=== PATIENT | female | born 2000 | race African-American/Black ===

== ENCOUNTER 2020-05-26 15:29 | Emergency (ER) | payer OTHER ==
--- OUTSIDE RECORDS SUMMARY | 2020-05-26 15:32 | XMS REPORT | Continuity of Care Document ---
:2000 Author Organization [facility] t Address [address] [place] [address] Care Team Providers Name Role Phone EVE Attending Clinician Unavailable DO RIGOBERTO Attending Clinician Unavailable Nancy RUCKER Attending Clinician Unavailable EMMA Attending Clinician Unavailable EVE Admitting Clinician Unavailable DO RIGOBERTO Admitting Clinician Unavailable Nancy RUCKER Admitting Clinician Unavailable EMMA Admitting Clinician Unavailable Problems Condition Condition Condition Status Onset Resolution Last Treating Co mments Source Name Details Category Date Date Treatment Clinician Date Labor pain Labor pain Problem Active 2019-[address] [facility] l (LUF/LI V/SA) Fetus OR Fetus OR Problem Active 2018[facility] affected affected 00:00: Memori a by by 00 l spontaneou spontaneou (L UF/LI s s V/ SA) Pyelonephr Pyelonephr Problem Active [facility] itis itis 7- [facility] - [facility] Memoria 00 l (LUF/LI V/SA) Headache [facility] l (LUF/LI V/SA) Urinary Urinary Problem Active [facility] tract tract 11-25 [facility] - infectious infectious 00:00: Me moria disease disease 00 l (LUF/LI V/SA) Headache Headache Problem [facility]oria 00 l (LUF/LI V/SA) Insect Insect Problem Complet [facility] bite - bite - ed [facility] - wound wound Memoria l (LUF/LI V/SA) Allergies, Adverse Reactions, Alerts This patient has no known allergies or adverse reactions. Social History Smoking Status Start Date Stop Date Source Never [facility] (LUF/[facility]/SA) Medications Ordered Filled Start Stop Current Ordering Indication Dosage Frequency Signature Comments Components Source Medication Medication Date Date Medication? Clinician (SIG) Name Name Medroxyprog Medroxyprog 2019-03 Yes 150mg intramuscu [facility] esterone IM esterone IM 0-13 lar once [facility] - 00:[facility]: [facility]oria 00 l (LUF/LI V/SA) Acetaminoph Acetaminoph 2019-03 Yes 1000 12xD BY MOUTH [facility] en 500 MG en 500 MG 0-12 EVERY 4 Alexa kes - Oral Tablet Oral Tablet 00:00: HOURS Memoria [Tylenol] [Tylenol] 00 NEEDED as l needed. (LUF/LI (ADULT V/SA) MAXIMUM ACETAMINOP HEN DOSE PER 24 HOURS = 4 GRAMS PRN HEADACHE FEVER GREATER THAN 101F MILD PAIN RATED 1-[address] OF NARCOTIC BY REQUEST OF PATIENT DO NOT GIVE WITHIN 4 HOURS OF OTHER MEDS CONTAINING ACETAMINOP HEN) Benzocaine Benzocaine 2019-03 Yes 1 [address] [facility] 200 MG/ML / 200 MG/ML / 0-12 AFFECTED [facility] - Menthol 5 Menthol 5 00:00: AREA PER Memoria MG/ML MG/ML 00 PROTOCOL l Topical Topical as needed. (ALEXA F/LI [place] (RETURN TO /SA) [[facility] [[facility] Pain] Pain] FOR DISPOSAL.) Promethazin Promethazin 2020- No Peggy [address] e HCl e HCl 6 08- [place] as needed [facility] Lamictal Lamictal Yes Peggy [address] [facility] Sprintec 28 Sprintec 28 Yes Peggy [address] [facility] Propranolol Propranolol Yes Peggy [address] [address] HCl HCl [place] [facility] Depo-Agency Recruiter Depo-Agency Recruiter Yes Peggy [address] [facility] Strattera Strattera Yes Peggy [address] [facility] Clonidine Clonidine Yes Peggy [address] HCl HCl [facility] EnLyte EnLyte Yes Peggy as [facility] directed [facility] ent [facility] Protonix Protonix Yes Peggy [address] [facility] Yes Peggy [address] Vitamin Vitamin [facility] DOCUSATE DOCUSATE Yes 100 3xD BY MOUTH [facility] SODIUM SODIUM TWICE A [facility] - DAY (STOOL Memoria SOFTENER) l (LUF/LI V/SA) IBUPROFEN IBUPROFEN Yes [address] [facility] every 8 [facility] - hours as Memoria needed as l needed. (LUF/LI V/SA) Immunizations Ordered Filled Immunization Date Status Comments [facility] e Immunization Name Name Influenza, Influenza, 2020-01-[address] [facility] injectable, injectable, 07:32:00 [facility] quadrivalent, quadrivalent, (LUF/CHERELLE /SA) preservative free preservative free tetanus toxoid, tetanus toxoid, 2019-10-21 Com[facility] - reduced diphtheria reduced diphtheria 00:00:00 [facility] toxoid, and toxoid, and (LUF/CHERELLE/SA) acellular pertussis acellular pertussis vaccine, adsorbed vaccine, adsorbed TDAP > 7 TDAP > 7 2019-10-[address] [facility] - Years-Adacel Years-Adacel 00:00:00 [facility] Outpatient Clinics Influenza, Influenza, 2019-03-[address] [facility] - injectable, injectable, 10:50:00 [facility] quadrivalent, quadrivalent, (LUF/CHERELLE /SA) preservative free preservative free Vital Signs Vital Name Observation Time Observation Value Comments Source Body Temperature 2020-01-03 07:13:00 97.7 [degF] [facility] (LUF/CHERELLE/SA) Pulse Rate 2020-01-03 07:13:00 70 /min [facility] (LUF/CHERELLE/SA) Respiratory Rate 2020-01-03 07:13:00 18 /min [facility] (LUF/CHERELLE/SA) O2% BldC Oximetry 2020-01-03 07:13:00 100 % [facility] (LUF/CHERELLE/SA) BP Systolic 2020-01-03 07:13:00 122 mm[Hg] [facility] (LUF/CHERELLE/SA) BP Diastolic 2020-01-03 07:13:00 66 mm[Hg] [facility] (LUF/CHERELLE/SA) Height 2020-01-02 04:02:00 65 [in_i] [facility] (LUF/CHERELLE/SA) Weight 2020-01-02 04:00:00 66.5 kg [facility] (LUF/CHERELLE/SA) Procedures Procedure Date / Time Performed Performing Clinician Sourc e INTRO INFLUENZA VACCNE 2020-01-02 00:00:00 SHAZIA [place] - MUSCLE PERQ [facility] (LUF/CHERELLE/SA) DELIVERY PRODUCTS OF 2020-01-02 00:00:00 [facility] - CONCEPTION EXT [facility] (LUF/CHERELLE/SA) MAN EXT PROD CONCEPTION 2020-01-02 00:00:00 [facility] RET JOSELITO/A O [facility] (LUF/CHERELLE/SA) Encounters Start End Encounter Admission Attending Care Care Encounter Source Date/Time Date/Time Type Type Clinicians Facility Department ID 2020-01-02 2020-01-03 SMOKING E [place] [id number] [facility] St 04:28:00 17:00:00 TOBACCO JUJU CHIN [facility] carmens [facility] [address] V/SA) [place] [address] 2020-01-02 2020-01-[address] [id number] 2019-10-21 2019-10-21 Outpatient [facility] [id number] 13:08:00 13:08:00 Clinics [facility] 2019-10-21 2019-10-21 Outpatient [facility] [id number] 09:45:00 09:45:00 Clinics Clinics [facility] Health I Health I l Outpati ent Clinics 2019-10-21 2019-10-21 Outpatient [facility] [id number] [facility] 00[facility]00 [facility] Outpati ent Clinics 2019-10-13 2019-10-13 Outpatient [facility] [id number] 15:20:00 15:20:00 Clinics [facility] Health I Health I l Outpati ent Clinics 2019-10-13 2019-10-13 Outpatient [facility] [id number] 14:30:00 14:30:00 Clinics Clinics [facility] Health I Health I l Outpati ent Clinics 2019-09-13 2019-09-13 Outpatient [facility] [id number] 13:30:00 13:30:00 Clinics Clinics [facility] Health I Health I l Outpati ent Clinics 2019-08-17 2019-08-17 Outpatient [facility] [id number] 15:25:00 15:25:00 Clinics Clinics [facility] Health I Health I l Outpati ent Clinics 2019-08-17 2019-08-17 Outpatient [facility] [id number] 14:56:00 14:56:00 Clinics Clinics [facility] Health I Health I l Outpati ent Clinics 2019-08-16 2019-08-16 Outpatient [facility] [id number] 09:35:00 09:35:00 Clinics Clinics [facility] Health I Health I l Outpati ent Clinics 2019-08-16 2019-08-16 Outpatient [facility] [id number] 08:30:00 08:30:00 Clinics Clinics [facility] Health I Health I l Outpati ent Clinics 2019-08-16 2019-08-16 Outpatient [facility] [id number] 08:00:00 08:00:00 Clinics Clinics [facility] Health I Health I l Outpati ent Clinics Results Test Description Test Time Test Comments Results Result Comments Source RUBELLA IMMUNE STATUS 2020-01-04 10:03:00 Test Item Value Reference Range Interpretation Comme nts RUBELLA ANTIBODIES, IGG (test 3.06 index Immune >0.99 N code = 681346) Non-immune <0.90 Equivocal 0.90 - 0.99 Immune >0.99 PERFORMED AT: [facility] [address] [id number] FIBERGLASS CONTAINER WINDING OPERATOR: Walter Watson MD PHONE: [phone] [id number] 16:07:00 [address], [place] [address]Reahj: [phone] UUBT #: [id number] Brim Ironer Hand: Broderick Bell M.D.Surgical Pathology Consultation ReportPatient Name: SERVANDO BACH Case #: [id number] Med. Rec. #: [id number]: [id number] Surgery Date: 01/02/2020 : 2000 (Age:19) Received: 01/03/2020 Gender: F Copy to : Reported:01/03/2020 Physician(s): Juju Brush Specimen(s) ReceivedA: Placenta and cord Final Pathologic DiagnosisPlacenta and cord, products of conception:- MATURE PLACENTA AND CORD. Electronically Signed Out jk/01/03/2020 Broderick eBll MD, Board Certified in Anatomic Pathology Clinical HistoryVaginal delivery at 39 weeks, G2,P0.Gross DescriptionThe specimen is labeled placenta and cord. A 526-gram disc-shapedplacentameasuring 19 x 18 x up to 2.7 cm is received. There is also somedetachedplacental material within the container measuring 5 x 4 x up to 3 cm. Theumbilical cord is centrally located and measures 31 cm in length with adiameter up to 1.5 cm. No knots are identified. Serially sectioningthroughthe cord reveals three vessels. The cord is normallycoiled. The fetalmembranes have a reddish blue appearance. Serially sectioning throughthematernal cotyledons reveals a red spongy cut surface. Section Code: CassetteA1- membranes and portion of umbilical cord; cassetteA2- placenta;cassette A3-placenta and maternal portion of umbilical cord .jk01/03/2020 Broderick Bell MD, Board Certified in Anatomic Pathology Microscopic DescriptionMicroscopic examination of the placenta reveals numerous third trimesterchorionic villi with syncytial knots. There are areas of intervillousfibrindeposition as well as calcifications. No villitis is seen. Theumbilicalcord is composed of two arteries and a vein and there is no inflammationpresent. The membranes are histologically unremarkable and shownoevidence of inflammation.Billing Fee Code(s): A; [id number] (HEMOGRAM ONLY) 2020-01-03 06:05:00 Test Item Value Reference Range Interpretation Comments WBC (test code = 11.78 4.80-10.80 H WBC) 10\\S\\3/ul RBC (test code = 3.53 10\\S\\6/ul 4.20-5.40 L RBC) Hemoglobin (test 9.9 gm/dl 12.0-14.0 L code = HGB) Hematocrit (test 30.7 % 37.0-47.0 L code = HCT) MCV (test code = 87.0 fL 81.0-99.0 MCV) MCH (test code = 28.0 pg 27.0-31.0 MCH) MCHC (test code = 32.2 gm/dl 33.0-37.0 L MCHC) RDW (test code = 14.9 % 11.5-14.5 H RDWVC) Platelet (test code 230 10\\S\\3/ul 130-400 = PLT) MPV (test code = 11.6 fL 7.4-10.4 A "NOT MEASUR ED" MPV) RESULTS ARE DIS PLAYED WHEN THE INSTRU MENT HAS A SUPPRESSE D OR UNREPORTABLE RE SULT. THIS WILL MOST OFTEN HAPPEN WITH THE MPV WHEN THERE IS A N ABNORMAL PLATEL ET DISTRIBUTION DU E TO A CRITICAL LOW VA LUE OR PLATELET CLUMPI NG. THE RDW MAY BE SUPPRESSED IF T HERE ARE MULTIPLE PE AKS PRESENT ON THE RBC HISTOGRAM. IN THIS CASE, A MANUAL REVIEW OF THE SLIDE WI LL BE PERFORMED, AND RBC MORPHOLOGY WILL BE NOTED ON THE RE PORT. URINALYSIS WITH [id number] 08:36:00 Test Item Value Reference Range Interpretation Comments Color (test code = UCOLR) Yellow Lt. Yellow A Clarity (test code = UCLAR) Clear Glucose (test code = UGLUC) Negative Negative N Bilirubin (test code = UBILI) Negative Negative N Ketones (test code = UKET) Negative Negative N Specific Cornish (test code = 1.020 1.005-1.030 A USPGR) Blood (test code = UBLD) Trace-intact Negative A PH (test code = UPH) 7.0 4.5-8.0 A Protein (test code = UPROT) 100 Negative A Urobilinogen (test code = U 1.0 >0.2 A UROB) Nitrite (test code = UNITR) Negative Negative N Leukocyte Esterase (test code = Trace Negative A ULEUK) WBC (test code = WBCUR) 0-5 0-5 N RBC (test code = RBCUR) 0-5 0-5 N Epithial Cells (test code = U 0-10 0-10 N EPI) Bacteria (test code = UBACT) Trace None Seen,Trace N TYPE & [id number] 06:52:00 Test Item Value Reference Range Interpretation Comments ABO Blood Type (test code = ABO) O Rh (test code = RH) Positive Antibody Screen (test code = ABSCR) Negative Negative N ARMBAND# (test code = ARMBAND) GP 26 342 HEP B SURFACE [id number] 06:47:00 Test Item Value Reference Range Interpretation Comments FT (test code = Negative Negative N HBSAG) (qualifier value) Hep B Surface Ag 0.22 mIU/mL 0.00-1.00 No previous value was (Signal Value) reported. Evelyn hammond of (test code = 0.22 was entere d by HBSAG.SV) [id number] on 02/2020 06:47 HBsAg Sig nal Cutoff Interpre tation Guide: < 1.00 Negative S pecimen is presumed to be negative for HB sAg. >=1.00 and < 5. 00 Reactive Spec imen is reactive for HB sAg. Suggest confirm ation by supplemental testing. > 5.00 Positive Specimen is pos itive for HBsAg. HIV 4th GENERATION, [id number] 06:47:00 Test Item Value Reference Range Interpretation Comments HIV 1, 2 (test code <0.05 0.00-0.89 N INTERPRE TATION OF RESULTS: = HIV) Non-Reactive = < 0.90 s/c Reactive = > 1.00 s/c (Confirmat ory tests suggested) Inte rmediate = > 0.90 s/c and <1.00 s/c (results are ba sed on duplicate testi ng) 1. Result is consi dered as Non-Reactive if both the initial and rep eat testing results are non -reactive. 2. Result is c onsidered as Reactive if one or both the initial and rep eat testing results are alvina ctive. (Con firmatory tests suggested ) SYPHILIS, [id number] 06:46:00 Test Item Value Reference Range Interpretation Comments SYPHILIS QUANTITATIVE 0 0.00-0.89 Sample s with an Index (test code = SYPH) Value < 0 .90 are considered nonr eactive for syphilis T. pallidum antibo dies. Samples with an Index Value > 0.90 an d < 1.10 are considered equivocal. Kun ples with an Index V alue > 1.10 are consid ered reactive for sy philis T. pallidum ant ibodies. CORONAVIRUS 2019 (IN LUFKIN)(3HR)2020-01-02 06:30:00 Test Item Value Reference Range Interpretation Comments FT (test code Negative Negative N The BioGX SARS -CoV-2 = COVID) (qualifier value) Reagents f or BD MAX System, the Bio Fire Covid-19, and t he Cepheid Covid-1 9 is for in vitro us e under FDA Emergency U se Authorization o nly. Inhouse testingCBC WITH AUTO [id number] 05:30:00 Test Item Value Reference Range Interpretation Comments WBC (test code = 12.52 4.80-10.80 H WBC) 10\\S\\3/ul RBC (test code = 4.06 10\\S\\6/ul 4.20-5.40 L RBC) Hemoglobin (test 11.2 gm/dl 12.0-14.0 L code = HGB) Hematocrit (test 34.7 % 37.0-47.0 L code = HCT) MCV (test code = 85.5 fL 81.0-99.0 MCV) MCH (test code = 27.6 pg 27.0-31.0 MCH) MCHC (test code = 32.3 gm/dl 33.0-37.0 L MCHC) RDW (test code = 14.5 % 11.5-14.5 RDWVC) Platelet (test code 281 10\\S\\3/ul 130-400 = PLT) MPV (test code = 11.2 fL 7.4-10.4 A "NOT MEASUR ED" MPV) RESULTS ARE DIS PLAYED WHEN THE INSTRU MENT HAS A SUPPRESSE D OR UNREPORTABLE RE SULT. THIS WILL MOST OFTEN HAPPEN WITH THE MPV WHEN THERE IS A N ABNORMAL PLATEL ET DISTRIBUTION DU E TO A CRITICAL LOW VA LUE OR PLATELET CLUMPI NG. THE RDW MAY BE SUPPRESSED IF T HERE ARE MULTIPLE PE AKS PRESENT ON THE RBC HISTOGRAM. IN THIS CASE, A MANUAL REVIEW OF THE SLIDE WI LL BE PERFORMED, AND RBC MORPHOLOGY WILL BE NOTED ON THE RE PORT. NE% (test code = 58.4 % 42.0-75.0 NE) LY% (test code = 30.0 % 13.0-42.0 LY) MO% (test code = 8.9 % 4.0-14.0 MO) EO% (test code = 2.0 % 1.0-5.0 EO) BA% (test code = 0.2 % 0.0-3.0 BA) IG% (test code = 0.5 % 0.0-0.4 H IG%) DRUG SCREEN [id number] 05:10:00 Test Item Value Reference Range Interpretation Comments Amphetamines (test code POS = AMPHET) BARBITUATES (test code = NEG EMILY) Benzodiazepines (test NEG code = BENZO) Cocaine (test code = NEG HAKAN) Methadone (test code = NEG MTD) Opiates (test code = NEG OPIAT) PHENCYCLIDINE, PCP (test NEG The following table code = PCP) provides an int erpretive guide for the D rugs of Abuse ran on e Siemens Van analyzer listed there in: Amphetamines < 1000 ng/ml = Negati ve Barbituates < 200 ng/ml = Negati ve Benzodiazapines < 200 ngml = Negati ve Cocaine < 300 ng/ml = Negati ve Methadone < 300 ng/ml = Negati ve Opiate < 300 ng/ml = Negati ve PCP < 25 ng/ml = Negati ve THC < 50 ng/ml = Negati ve Results equal t o or greater than e above cut-off values = Presumptive Pos itive. Confirmation of Presumptive Pos itive results are qiana ilable upon request. Cannabinoids, THC (test POS code = THC) STAT LAB , [id number] 09:35:00 Test Item Value Reference Range Interpretation Comments (Urine) (test code = Negative PREGU) ONLY AVAILABLE 8A-12MNHISTOLOGY [id number] 12:40:00 [address], [place] [address]Vfazi: [phone] EGBB #: [id number] Brim Ironer Hand: Broderick Bell M.D.Surgical Pathology Consultation ReportPatient Name: SERVANDO WIN Case #: [id number] [facility]. Rec. #:[id number]: [id number] Surgery Date: 03/06/2019 : 2000 (Age:18) Received: 03/07/2019 Gender: F Copy to : Reported:03/08/2019 Physician(s): Juju Brush Specimen(s) ReceivedA: Products of conception Final Pathologic DiagnosisProducts of conception:- immature chorionic villi and degenerating tissue in abackground of gestational endometrium. Electronically Signed Out /03/08/2019 Broderick Bell MD, Board Certified in Anatomic Pathology Clinical HistorySpontaneous .Gross DescriptionThe specimen is labeled products of conception. An aggregate ofhemorrhagictissue measuring 13 x 8 by up to 4 cm is received. Within this tissuethereis some mistry-pink spongy material measuring 7.8 x 4 by up to 2 cm. Thisappears to possibly be a gestational sac. Serial sectioning reveals acysticspace in the middle. Transport Company Manager sections submitted in cassettes [id number]. /03/07/2019 Broderick Bell MD, Board Certified in Anatomic Pathology Microscopic DescriptionMicroscopic examination of the products of conception reveals someimmaturechorionic villi as well as some degenerating tissue in abackground ofgestational endometrium, peripheral blood and fibrin. There are noabnormaltrophoblastic proliferations seen. Billing Fee Code(s): A; [id number], [id number] 07:09:00Specimen: Urine SpecimensCollected: 03/06/2019 09:05 Status: Final Last Updated: 03/08/2019 07:09 Culture Result (Final) (Final) >100,000 cc/mL Gram Negative Bacilli This organism may be significant in women of childbearing age due tothe occurance of meningitis. Isolate (Final) (Final) Escherichia coli Amikacin <=2 S Ampicillin >=32 R Ampicillin/Sulbac 8 S Cefazolin <=4 S Cefepime <=1 S Cefoxitin <=4 S Ceftazidime <=1 S Ceftriaxone <=1 S Ciprofloxacin <=0.25 S Gentamicin <=1 S Levofloxacin <=0.12 S Meropenem <=0.25 S Nitrofurantoin <=16 S Piperacillin/Tazo <=4 S Tobramycin <=1 S Trimeth/Sulfa >=320 R ESBL Negative -US INTRAVAGINAL [id number] 11:38:19Procedures: US INTRAVAGINAL PELVISExam Date: 03/06/2019 9:05 AMOrdering Physician: JUJU SILVERMANClinical Indication: [id number]: Patient currently Comparison: Pelvic sonogram, 03/05/19LMP: 12/30/18Findings: endovaginal sonographic evaluation of the gynecologic organs withgrayscale and color Doppler sonography.UTERUS: Anteverted. The uterus has a normal sonographic echotexture andmeasures 8.8 x 6.0 x 3.9 cm. Endometrial stripe thickness of 6 mm. Mildheterogeneity is demonstrated within the region of the cervix and may representsmall amount of residual products of conception. No significant free fluid isdemonstrated within the posterior cul-de-sac.RIGHT ADNEXA: Not evaluated.LEFT ADNEXA: Not evaluated.IMPRESSION: The uterine cavity has been evacuated since comparison. Mildheterogeneity is demonstrated within the region of the cervix and may representsmall amount of residual products of conception.This final report was electronically signed by Dr Eva Grimaldo MD03/06/2019 11:32 AMDictated By: EVA MITCHELLDate: 03/06/2019 11:32 URINALYSIS WITH [id number] 09:30:00 Test Item Value Reference Range Interpretation Comments Color (test code = UCOLR) YELLOW Clarity (test code = UCLAR) CLEAR Glucose (test code = UGLUC) NEGATIVE NEGATIVE N Bilirubin (test code = UBILI) NEGATIVE NEGATIVE N Ketones (test code = UKET) NEGATIVE NEGATIVE N Specific Cornish (test code = USPGR) >=1.030 1.005-1.030 A Blood (test code = UBLD) LARGE NEGATIVE A PH (test code = UPH) 6.0 4.5-8.0 A Protein (test code = UPROT) NEGATIVE NEGATIVE N Urobilinogen (test code = U UROB) 0.2 >0.2 N Nitrite (test code = UNITR) POSITIVE NEGATIVE A Leukocyte Esterase (test code = NEGATIVE NEGATIVE N ULEUK) WBC (test code = WBCUR) 0-5 0-5 N RBC (test code = RBCUR) 20-30 0-5 A Epithial Cells (test code = U EPI) TNTC 0-10 A Bacteria (test code = UBACT) 4+ None Seen,Trace A CBC WITH AUTO [id number] 05:30:00 Test Item Value Reference Range Interpretation Comments WBC (test code = 10.81 4.80-10.80 H WBC) 10\\S\\3/ul RBC (test code = 3.61 10\\S\\6/ul 4.20-5.40 L RBC) Hemoglobin (test 10.4 gm/dl 12.0-14.0 L code = HGB) Hematocrit (test 31.0 % 37.0-47.0 L code = HCT) MCV (test code = 85.9 fL 81.0-99.0 MCV) MCH (test code = 28.8 pg 27.0-31.0 MCH) MCHC (test code = 33.5 gm/dl 33.0-37.0 MCHC) RDW (test code = 14.9 % 11.5-14.5 H RDWVC) Platelet (test code 229 10\\S\\3/ul 130-400 = PLT) MPV (test code = 11.2 fL 7.4-10.4 A "NOT MEASUR ED" MPV) RESULTS ARE DIS PLAYED WHEN THE INSTRU MENT HAS A SUPPRESSE D OR UNREPORTABLE RE SULT. THIS WILL MOST OFTEN HAPPEN WITH THE MPV WHEN THERE IS A N ABNORMAL PLATEL ET DISTRIBUTION DU E TO A CRITICAL LOW VA LUE OR PLATELET CLUMPI NG. THE RDW MAY BE SUPPRESSED IF T HERE ARE MULTIPLE PE AKS PRESENT ON THE RBC HISTOGRAM. IN THIS CASE, A MANUAL REVIEW OF THE SLIDE WI LL BE PERFORMED, AND RBC MORPHOLOGY WILL BE NOTED ON THE RE PORT. NE% (test code = 53.4 % 42.0-75.0 NE) LY% (test code = 32.0 % 13.0-42.0 LY) MO% (test code = 8.5 % 4.0-14.0 MO) EO% (test code = 5.3 % 1.0-5.0 H EO) BA% (test code = 0.6 % 0.0-3.0 BA) IG% (test code = 0.2 % 0.0-0.4 IG%) US INTRAVAGINAL [id number] 17:08:57Procedures: US INTRAVAGINAL OBExam Date: 03/05/2019 3:38 PMOrdering Physician: HIMANSHU SOTELOClinical Indication: [id number]: Patient currently [id number]: Vaginal bleedingComparison: None available.LMP: 12/30/18Findings: Transabdominal and endovaginal sonographic evaluation of thegynecologicorgans with grayscale and color Doppler sonography.UTERUS: Anteverted. Single living intrauterine gestation at 8 weeks 5 days bycrown-rump length measurement of 2.1 cm deriving an EDC of 10/10/19. Cardiacactivity is not detectable. No significant free fluid is demonstrated withinthe posterior cul-de-sac.RIGHT ADNEXA: Right ovary 3.1 x 1.8 x 1.6 cm. No significant sonographicabnormalities of the right ovary or right adnexa.LEFT ADNEXA: Left ovary 2.8 x 1.8 x 1.5 cm. No significant sonographicabnormalities of the left lower ovary or left adnexa.IMPRESSION: Single intrauterine gestation at 8 weeks 5 days by crown-rump lengthmeasurement and without detectable cardiac activity. Findings consistent withfirst trimester demise.These findings were verbally reported by Dr Grimaldo to HIMANSHU SOTELO on03/05/2019 5:02 PM. :::This final report was electronically signed by Dr Eva Grimaldo MD03/05/2019 5:02 PMDictated By: EVA MITCHELLDate: 03/05/2019 17:02BETA HCG [id number] 16:39:00 Test Item Value Reference Range Interpretation Comments BHCG II (test 1662.00 IU/L 0.00-4.80 H A NEW EXPANDED METHOD FOR code = BHCGII) BHCG WILL BE INTRODUCED ON OCTOBER 30. THE DYNAMIC RANGE O F THE TEST HAS BEEN INCREA SED ALLOWING FOR FE WER DILUTUIONS, AND THE GESTATION WEEKS HAVE BEEN AGGREGATED TO A LLOW FOR EASE OF INTREPR ETATION. PLEASE REFER TO THE INTERPRETATION TABLE BELOW. Beta hC G levels in non- individuals = < 4.83 IU/L GESTAT IONAL AGE: 1-10 weeks 63.70 - 338334.00 IU/ L 11-15 weeks 46150. 00 - 436230.00 IU/L 16-22 weeks 9383. 80 - 31600.00 IU/L 23-40 weeks 1737. 20 - 55516.00 IU/L Detection of very Low Lev els of hCG does not exclud e . Repe at testing after 48 Hrs. i s recommended. TH IS ASSAY SHOULD NOT BE U SED TO DIAGNOSE ANY CO NDITION UNRELATED TO KS EGNANCY. URINALYSIS WITH [id number] 16:31:00 Test Item Value Reference Range Interpretation Comments Color (test code = UCOLR) RED Clarity (test code = UCLAR) CLOUDY Glucose (test code = UGLUC) NEGATIVE NEGATIVE N Bilirubin (test code = UBILI) NEGATIVE NEGATIVE N Ketones (test code = UKET) TRACE NEGATIVE A Specific Cornish (test code = USPGR) >=1.030 1.005-1.030 A Blood (test code = UBLD) LARGE NEGATIVE A PH (test code = UPH) 5.5 4.5-8.0 A Protein (test code = UPROT) 100 NEGATIVE A Urobilinogen (test code = U UROB) 1.0 >0.2 A Nitrite (test code = UNITR) POSITIVE NEGATIVE A Leukocyte Esterase (test code = TRACE NEGATIVE A ULEUK) WBC (test code = WBCUR) 0-10 0-5 A RBC (test code = RBCUR) TNTC 0-5 A Epithial Cells (test code = U EPI) TNTC 0-10 A Bacteria (test code = UBACT) Trace None Seen,Trace N PT AND [id number] 16:24:00 Test Item Value Reference Range Interpretation Comments Protime (test code 10.6 seconds 9.5-12.1 = PT) INR (test code = 1.0 0.9-1.1 INR results are INR) intended ONLY t o monitor Oral Anticoagulant t herapy in stablized pa tients. The INR Therape utic Range is 2.0 - 3.0 Patients with a mechanical hear t, the INR Range is 2. 5 - 3.5 STAT LAB [id number] [id number] 16:13:00 Test Item Value Reference Range Interpretation Comments Sodium (test code = NA) 137 mmol/l 138-146 L Potassium (test code = K) 4.0 mmol/l 3.5-4.9 Chloride (test code = CL) 104 mmol/l 98-109 IONIZED CALCIUM (test code = ICA) 1.14 1.12-1.32 A CO2 (test code = CO2) 24 mmol/l 24-29 Glucose (test code = GLU) 102 mg/dl 70-105 BUN (test code = BUN) 7 mg/dl 6-17 Creatinine (test code = CREA) 0.6 mg/dl 0.6-1.3 [id number] 16:13:00 Test Item Value Reference Range Interpretation Comments Rh (test code = RH) Positive Positive,Negative N Weak D (Du) (test code = DU) N/A STAT LAB CBC WITH AUTO [id number] 16:10:00 Test Item Value Reference Range Interpretation Comments WBC (test code = WBC) 8.47 10\\S\\3/ul 4.80-10.80 RBC (test code = RBC) 4.14 10\\S\\6/ul 4.20-5.40 L Hemoglobin (test code = HGB) 11.9 gm/dl 12.0-14.0 L Hematocrit (test code = HCT) 36.3 % 37.0-47.0 L MCV (test code = MCV) 87.7 fL 81.0-99.0 MCH (test code = MCH) 28.7 pg 27.0-31.0 MCHC (test code = MCHC) 32.8 gm/dl 33.0-37.0 L Platelet (test code = PLT) 269 10\\S\\3/ul 130-400 RDW (test code = RDWVC) 15.6 % 11.5-14.5 H MPV (test code = MPV) 10.9 fL 7.4-10.4 A NE% (test code = NE) 44.3 % 42.0-75.0 LY% (test code = LY) 39.0 % 13.0-42.0 MO% (test code = MO) 7.3 % 4.0-14.0 EO% (test code = EO) 8.7 % 1.0-3.0 H BA% (test code = BA) 0.5 % 1.0-3.0 L IG% (test code = IG%) 0.2 % 0.0-0.4 CULTURE, [id number] 06:21:00FIRST DRAW = 1 aerobic and 1 anerobic Culture Specimen: BloodCollected: 10/11/2018 15:20 Status: Final Last Updated: 10/17/2018 06:21 (1) FIRST DRAW = 1 aerobic and 1 anerobic Culture Culture Result (Final) (Final) No Growth After 5 DaysCULTURE, ANAEROBE BLOOD 2018-10-17 06:21:00FIRST DRAW = 1 aerobic and 1 anerobic CultureSpecimen: BloodCollected: 10/11/2018 15:20 Status: Final Last Updated: 10/17/2018 06:21 (1) FIRST DRAW = 1 aerobic and 1 anerobic Culture Culture Result (Final) (Final) No Growth After 5 DaysSTAT LAB , [id number] 15:41:00 Test Item Value Reference Range Interpretation Comments (Urine) (test code = Negative PREGU) ONLY AVAILABLE 8A-12MNSTAT LAB URINALYSIS WITHOUT [id number] 15:39:00 Test Item Value Reference Range Interpretation Comments Color (test code = UCOLR) Yellow Lt. Yellow A Clarity (test code = UCLAR) Clear Glucose (test code = UGLUC) Negative Negative N Bilirubin (test code = UBILI) Negative Negative N Ketones (test code = UKET) 15 Negative A Specific Cornish (test code = USPGR) 1.020 1.005-1.030 A Blood (test code = UBLD) Moderate Negative A PH (test code = UPH) 5.5 4.5-8.0 A Protein (test code = UPROT) 100 Negative A Urobilinogen (test code = U UROB) 4.0 >0.2 A Nitrite (test code = UNITR) Positive Negative A Leukocyte Esterase (test code = Small Negative A ULEUK) STAT LAB CBC WITH AUTO [id number] 15:38:00 Test Item Value Reference Range Interpretation Comments WBC (test code = WBC) 14.48 10\\S\\3/ul 4.80-10.80 H RBC (test code = RBC) 4.79 10\\S\\6/ul 4.20-5.40 Hemoglobin (test code = HGB) 13.3 gm/dl 12.0-14.0 Hematocrit (test code = HCT) 41.8 % 37.0-47.0 MCV (test code = MCV) 87.3 fL 81.0-99.0 MCH (test code = MCH) 27.8 pg 27.0-31.0 MCHC (test code = MCHC) 31.8 gm/dl 33.0-37.0 L Platelet (test code = PLT) 220 10\\S\\3/ul 130-400 RDW (test code = RDWVC) 14.0 % 11.5-14.5 MPV (test code = MPV) 10.9 fL 7.4-10.4 A NE% (test code = NE) 79.1 % 42.0-75.0 H LY% (test code = LY) 9.0 % 13.0-42.0 L MO% (test code = MO) 10.7 % 4.0-14.0 EO% (test code = EO) 0.7 % 1.0-3.0 L BA% (test code = BA) 0.2 % 1.0-3.0 L IG% (test code = IG%) 0.3 % 0.0-0.4 STAT LAB LACTIC [id number] 15:38:00 Test Item Value Reference Range Interpretation Comments LACTATE (test code = LAC) 1.83 mmol/l 0.90-1.70 H URINALYSIS WITH [id number] 13:30:00 Test Item Value Reference Range Interpretation Comments Color (test code = UCOLR) YELLOW Clarity (test code = UCLAR) SL CLOUDY Glucose (test code = UGLUC) NEGATIVE NEGATIVE N Bilirubin (test code = UBILI) NEGATIVE NEGATIVE N Ketones (test code = UKET) NEGATIVE NEGATIVE N Specific Cornish (test code = 1.015 1.005-1.030 A USPGR) Blood (test code = UBLD) MODERATE NEGATIVE A PH (test code = UPH) 6.0 4.5-8.0 A Protein (test code = UPROT) 100 NEGATIVE A Urobilinogen (test code = U UROB) 0.2 >0.2 N Nitrite (test code = UNITR) POSITIVE NEGATIVE A Leukocyte Esterase (test code = SMALL NEGATIVE A ULEUK) WBC (test code = WBCUR) 20-30 0-5 A RBC (test code = RBCUR) 5-10 0-5 A Epithial Cells (test code = U EPI) 40-50 0-10 A Mucous (test code = UMUC) Moderate None Seen A Bacteria (test code = UBACT) 4+ None Seen,Trace A Crystals Urine (test code = URCRYS) None Seen None Seen N Urine Casts (test code = UR CAST) None Seen None Seen N TEST, Urine [id number] 12:51:00 Test Item Value Reference Range Interpretation Comments (Urine) (test code = Negative PREGU) If a specimen is collected by a nurse, then you MUST fill out the Collected and Collected By beatty CULTURE, [id number] 07:34:00er 6 Specimen: Urine SpecimensCollected: 11/01/2016 09:55 Status: Final Last Updated: 11/03/2016 07:33 (1) er 6 Culture Result (Final) (Final) >100,000 cc/mL Gram Negative Bacilli Isolate (Final) (Final) Escherichia coli Amoxicillin/clavu 4 S Ampicillin >=32 R Cefazolin <=4 S Cefepime <=1 S Ceftriaxone <=1 S Gentamicin <=1 S Imipenem <=0.25 S Meropenem <=0.25 S Nitrofurantoin <=16 S Trimeth/Sulfa <=20 S ESBL Negative -URINALYSIS WITH [id number] 09:46:00 Test Item Value Reference Range Interpretation Comments Color (test code = UCOLR) YELLOW Clarity (test code = UCLAR) CLOUDY Glucose (test code = UGLUC) NEGATIVE NEGATIVE N Bilirubin (test code = UBILI) NEGATIVE NEGATIVE N Ketones (test code = UKET) NEGATIVE NEGATIVE N Specific Cornish (test code = USPGR) 1.025 1.005-1.030 A Blood (test code = UBLD) LARGE NEGATIVE A PH (test code = UPH) 6.0 4.5-8.0 A Protein (test code = UPROT) 100 NEGATIVE A Urobilinogen (test code = U UROB) 1.0 >0.2 A Nitrite (test code = UNITR) POSITIVE NEGATIVE A Leukocyte Esterase (test code = MODERATE NEGATIVE A ULEUK) WBC (test code = WBCUR) 60-75 0-5 A RBC (test code = RBCUR) 30-40 0-5 A Epithial Cells (test code = U EPI) 0-10 0-10 N Bacteria (test code = UBACT) 1+ None Seen,Trace A [id number] 09:41:00 Test Item Value Reference Range Interpretation Comments Glucose (test code 104 mg/dl 75-110 = GLU) BUN (test code = 9.0 mg/dl 6.0-17.0 BUN) Creatinine (test 0.8 mg/dl 0.4-1.2 code = CREA) Sodium (test code = 146 mmol/l 137-145 H NA) Potassium (test 3.6 mmol/l 3.5-5.0 code = K) Chloride (test code 109 mmol/l 98-107 H = CL) CO2 (test code = 24 mmol/l 22-30 CO2) Calcium (test code 9.7 mg/dl 8.4-10.2 = CALC) T Protein (test 7.9 gm/dl 5.1-8.7 code = TP) Albumin (test code 4.4 gm/dl 3.5-4.6 = ALB) A/G Ratio (test 1.3 % 1.1-2.2 code = AGRAT) AST (SGOT) (test 29 U/L 11-36 code = AST) ALT (SGPT) (test 30 U/L 11-40 code = ALT) Alkaline Phos (test 89 U/L 47-114 code = ALKP) Total Bilirubin 1.0 mg/dl 0.2-1.2 (test code = TBIL) Globulin (test code 3.5 gm/dl 2.3-3.5 = GLOBU) Calcium, Corrected 9.4 mg/dl 8.4-10.2 Various f ormulas exist (test code = for corrected s alka CALCCORR) calcium results , each yielding differ ent values. This corrected resul t was based on the fo rmula: Corrected Calci um = SerumCalcium + [0.8 * ( 4 - SerumAlbu min)] EGFR if n/a Russian (test code mL/min/1.73m\\ = EGFRAA) S\\2 EGFR if Non- n/a Estimate d Glomerular Russian (test code mL/min/1.73m\\ Filtrat ion Rate (eGFR) = EGFRNA) S\\2 Reference Inter vals Decision Points for 18 years and older and average body ma ss: >= 60 Does not exc lude kidney disease. 30 - 59 Suggests modera te chronic kidney disease and indicat es the need for furthe r investigation including asses sment of proteinuria and cardiovascular factors. < 30 Usually in dicates a need for refe rral for assessment and management of c hronic kidney failure. TEST, Urine [id number] 09:17:00 Test Item Value Reference Range Interpretation Comments (Urine) (test code = Negative PREGU) If a specimen is collected by a nurse, then you MUST fill out the Collected and Collected By beatty CBC WITH AUTO [id number] 09:17:00 Test Item Value Reference Range Interpretation Comments WBC (test code = WBC) 6.55 10\\S\\3/ul 4.80-10.80 RBC (test code = RBC) 4.63 10\\S\\6/ul 4.20-5.40 Hemoglobin (test code = HGB) 13.0 gm/dl 12.0-14.0 Hematocrit (test code = HCT) 40.2 % 37.0-47.0 MCV (test code = MCV) 86.8 fL 81.0-99.0 MCH (test code = MCH) 28.1 pg 27.0-31.0 MCHC (test code = MCHC) 32.3 gm/dl 33.0-37.0 L RDW-SD (test code = RDW-SD) 46.3 fL 36.4-46.3 Platelet (test code = PLT) 191 10\\S\\3/ul 130-400 MPV (test code = MPV) 11.6 fL 7.4-10.4 A NE% (test code = NE) 60.5 % 42.0-75.0 LY% (test code = LY) 26.3 % 13.0-42.0 MO% (test code = MO) 9.6 % 4.0-14.0 EO% (test code = EO) 2.7 % 1.0-3.0 BA% (test code = BA) 0.6 % 1.0-3.0 L IG% (test code = IG%) 0.3 % 0.0-0.4
[2020-05-26 17:31] LABS: BUN Blood Urea Nitrogen 9 mg/dL (7-18); Bicarbonate 29 mmol/L (21-32); Glucose Level 82 mg/dL (74-106); Potassium 4.1 mmol/L (3.5-5.1); Sodium Level 143 mmol/L (136-145)
[2020-05-26 17:34] LABS: Absolute Lymphocytes (CBC) 2.5 K/uL (0.7-4.9); Hematocrit 35.9 % (36.0-45.0); Lymphocytes % 52.6 % (15.3-44.8); MPV 9.8 fL (7.6-11.3); RBC Red Blood Cell Count 4.22 M/uL (3.86-4.86)
--- NOTE | 2020-05-26 17:45 | ER ---
Nurse's Notes [facility] Name: Harika Mccauley Age: 19 yrs Sex: Female : 2000 Arrival Date: 05/26/2020 Time: 15:53 Bed 17 Private MD: Diagnosis: Abnormal uterine and vaginal bleeding, unspecified Presentation: 05/26 15:54 Chief complaint: Patient states: 5 months post , last period was may 01 and bled iw for ten days, went to rehab abd had an odor, was diagnosed with yeast infection and BV, then started having heavy bleeding today and abd pain. Coronavirus screen: At this time, the client does not indicate any symptoms associated with coronavirus-19. Ebola Screen: Patient negative for fever greater than or equal to 101.5 degrees Fahrenheit, and additional compatible Ebola Virus Disease symptoms Patient denies exposure to infectious person. Patient denies travel to an Ebola-affected area in the 21 days before illness onset. No symptoms or risks identified at this time. Initial Sepsis Screen: Does the patient meet any 2 criteria? No. Patient's initial sepsis screen is negative. Does the patient have a suspected source of infection? No. Patient's initial sepsis screen is negative. Risk Assessment: Do you want to hurt yourself or someone else? Patient reports no desire to harm self or others. Onset of symptoms was May 26, 2020. 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 - Social history:: Smoking status: Patient reports the use of cigarette tobacco products, smokes one pack cigarettes per day. 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 Screenin:03 Abuse screen: Denies threats or abuse. Nutritional screening: No deficits noted. rb3 Tuberculosis screening: No symptoms or risk factors identified. Fall Risk None identified. Assessment: 16:03 General: Appears in no apparent distress. Behavior is calm, cooperative, Denies fever. rb3 Pain: Complains of pain in left lower quadrant Pain currently is 7 out of 10 on a pain scale. Neuro: Level of Consciousness is awake, alert, obeys commands, Oriented to person, place, time, situation. Cardiovascular: Patient's skin is warm and dry. Respiratory: Airway is patent Respiratory effort is even, unlabored, Respiratory pattern is regular, symmetrical. GI: Reports nausea. : Reports vaginal bleeding that is bright red, moderate flow. 17:00 Reassessment: Patient appears in no apparent distress at this time. No changes from rb3 previously documented assessment. 17:55 Reassessment: Patient appears in no apparent distress at this time. Patient and/or rb3 family updated on plan of care and expected duration. Pain level reassessed. Patient is alert, oriented x 3, equal unlabored respirations, skin warm/dry/pink. Vital Signs: 15:54 BP 110 / 87; Pulse 81; Resp 16; Temp 98.6; Pulse Ox 100% on R/A; Weight 54.43 kg; iw Height 5 ft. 2 in. (157.48 cm); Pain 7/10; 17:05 BP 109 / 88; Pulse 78; Resp 16; Pulse Ox 99% ; rb3 15:54 Body Mass Index 21.95 (54.43 kg, 157.48 cm) iw ED Course: 15:53 Patient arrived in ED. iw 15:57 Triage completed. iw 15:58 Arm band placed on. iw 16:00 Roseanna Garza FNP-C is [facility]. kb 16:00 Jasiel Gottlieb MD is Attending Physician. kb 16:03 Patient has correct armband on for positive identification. Bed in low position. Call rb3 light in reach. Side rails up X 1. Pulse ox on. NIBP on. 16:07 Radha Soto, VISHAL is Primary Nurse. rb3 17:00 Inserted saline lock: 20 gauge in right antecubital area, using aseptic technique. rb3 Blood collected. 18:02 Assist provider with bone marrow aspiration. IV discontinued, intact, bleeding zb controlled, No redness/swelling at site. Pressure dressing applied. Administered Medications: No medications were administered Outcome: 17:44 Discharge ordered by . kb 18:02 Discharged to home ambulatory. zb 18:02 Condition: stable 18:02 Discharge instructions given to patient, Instructed on discharge instructions, follow up and referral plans. Demonstrated understanding of instructions, follow-up care. 18:03 Patient left the ED. zb Signatures: Roseanna Garza, FINANCE EFFECTIVENESS MANAGER-C FINANCE EFFECTIVENESS MANAGER-CkMonica Reagan, RN RN Yaneth Wang RN RN Radha Sánchez, RN RN rb3 Corrections: (The following items were deleted from the chart) 15:57 15:54 Chief complaint: Patient states: 5 months post , last period was may 01 and iw bled for ten days, went to rehab abd had an odor, was diagnosed with yeast infection and BV, then started having heavy bleeding iw 15:57 15:54 Pulse 81bpm; Resp 16bpm; Pulse Ox 100% RA; Temp 98.6F; 54.43 kg; Height 5 ft. 2 iw in.; BMI: 21.9; Pain 7/10; iw
--- NOTE | 2020-05-26 17:45 | EDPHYS ---
Physician Documentation [facility] Name: Harika Mccauley Age: 19 yrs Sex: Female : 2000 Arrival Date: 05/26/2020 Time: 15:53 Bed 17 Private MD: ED Physician Jasiel Gottlieb HPI: 05/26 18:00 This 19 yrs old Black Female presents to ER via Ambulatory with complaints of Vaginal kb Bleeding. 18:00 The patient presents with vaginal bleeding that is moderate. Onset: The kb symptoms/episode began/occurred 1 month(s) ago. Modifying factors: The symptoms are alleviated by nothing, the symptoms are aggravated by nothing. Associated signs and symptoms: Pertinent positives: cramping, vaginal bleeding. Severity of symptoms: At their worst the symptoms were moderate, in the emergency department the symptoms are unchanged. The patient is sexually active, does not use protection during intercourse. The patient has not experienced similar symptoms in the past. The patient has not recently seen a physician. Pt reports intermittent vaginal bleeding with cramping for a month. Started bleeding again this morning. . 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 - Social history:: Smoking status: Patient reports the use of cigarette tobacco products, smokes one pack cigarettes per day. 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 ROS: 18:00 Constitutional: Negative for fever, chills, and weight loss, Cardiovascular: Negative kb for chest pain, palpitations, and edema, Respiratory: Negative for shortness of breath, cough, wheezing, and pleuritic chest pain, Abdomen/GI: Negative for abdominal pain, nausea, vomiting, diarrhea, and constipation, MS/Extremity: Negative for injury and deformity, Skin: Negative for injury, rash, and discoloration, Neuro: Negative for headache, weakness, numbness, tingling, and seizure. 18:00 : Positive for vaginal bleeding. Exam: 18:00 Constitutional: This is a well developed, well nourished patient who is awake, alert, kb and in no acute distress. Head/Face: Normocephalic, atraumatic. Skin: Warm, dry with normal turgor. Normal color with no rashes, no lesions, and no evidence of cellulitis. MS/ Extremity: Pulses equal, no cyanosis. Neurovascular intact. Full, normal range of motion. Neuro: Awake and alert, GCS 15, oriented to person, place, time, and situation. Cranial nerves II-XII grossly intact. Moves all extremities. Sensory grossly intact. Cerebellar exam normal. Normal gait. 18:00 Respiratory: the patient does not display signs of respiratory distress, Respirations: normal. Vital Signs: 15:54 BP 110 / 87; Pulse 81; Resp 16; Temp 98.6; Pulse Ox 100% on R/A; Weight 54.43 kg; iw Height 5 ft. 2 in. (157.48 cm); Pain 7/10; 17:05 BP 109 / 88; Pulse 78; Resp 16; Pulse Ox 99% ; rb3 15:54 Body Mass Index 21.95 (54.43 kg, 157.48 cm) iw MDM: 16:00 Patient medically screened. kb 18:05 Data reviewed: vital signs, nurses notes. Data interpreted: Pulse oximetry: on room air kb is 100 %. Interpretation: normal. Counseling: I had a detailed discussion with the patient and/or guardian regarding: the historical points, exam findings, and any diagnostic results supporting the discharge/admit diagnosis, lab results, radiology results, the need for outpatient follow up, an OB/Gyne specialist, to return to the emergency department if symptoms worsen or persist or if there are any questions or concerns that arise at home. 05/26 16:19 Order name: CBC with Diff; Complete Time: 17:37 kb 05/26 16:19 Order name: Basic Metabolic Panel; Complete Time: 17:37 kb 05/26 16:19 Order name: IV Start kb 05/26 16:19 Order name: US Transvaginal Study (Probe) kb 05/26 18:00 Order name: Urine Dipstick--Ancillary (enter results) eb 05/26 18:00 Order name: Urine --Ancillary (enter results) eb 05/26 16:19 Order name: Urine Dipstick-Ancillary (obtain specimen) kb 05/26 16:19 Order name: Urine Test (obtain specimen) elysia Administered Medications: No medications were administered Disposition: 05/27 09:04 Co-signature as Attending Physician, Jasiel Gottlieb MD I agree with the assessment and zena plan of care. Disposition: 05/26/20 17:44 Discharged to Home. Impression: Abnormal uterine and vaginal bleeding, unspecified. - Condition is Stable. - Discharge Instructions: Uterine Fibroids, [id number], Abnormal Uterine Bleeding, [id number]. - Medication Reconciliation Form, Thank You Letter, Antibiotic Education, Prescription Opioid Use, Work release form form. - Follow up: Private Physician; When: 2 - 3 days; Reason: Recheck today's complaints, Continuance of care, Re-evaluation by your physician. Follow up: Emergency Department; When: As needed; Reason: Worsening of condition. Signatures: Dispatcher [employer] EDMS Roseanna Garza, DISTRICT OR DISTRICT OFFICE DIRECTOR-C PAULINA-Jasiel Ruvalcaba MD MD cha Williams, Irene, RN RN iw Brown, Zipporah, RN RN zremington Corrections: (The following items were deleted from the chart) 05/26 18:03 17:44 05/26/2020 17:44 Discharged to Home. Impression: Abnormal uterine and vaginal zb bleeding, unspecified. Condition is Stable. Forms are Medication Reconciliation Form, Thank You Letter, Antibiotic Education, Prescription Opioid Use. Follow up: Private Physician; When: 2 - 3 days; Reason: Recheck today's complaints, Continuance of care, Re-evaluation by your physician. Follow up: Emergency Department; When: As needed; Reason: Worsening of condition. kb
--- NOTE | 2020-05-26 18:09 | RAD REPORT ---
EXAM DESCRIPTION: US - Transvaginal Study Probe - 05/26/2020 5:50 pm CLINICAL HISTORY: Abd pain;Vaginal bleeding COMPARISON: <Comparisons> TECHNIQUE: Endovaginal sonography was performed. FINDINGS: Uterus is normal in size. Endometrial stripe is 6 mm with no focal endometrial abnormality . In the posterior fundus there is a 19 millimeter hyperechoic focus most likely an intramural fibroi d. This does not displace or distort the endometrial cavity or distort the uterine capsule. No blood or fluid in the cul de sac. Both ovaries are identified. Doppler evaluation shows normal blood flow in the ovarian stroma. A 14 m illimeter anechoic right ovarian cyst is present. No cyst rupture or hemorrhage findings. No solid ma ss of the adnexa. IMPRESSION: Approximately 14 millimeter right ovarian cyst without rupture or hemorrhage findings. N o suspicious adnexal finding. Approximately 19 millimeter echogenic mass of the posterior uterine fundus is most likely an intramur al fibroid. This can be monitored on a follow-up examination in 6 months. No suspicious or emergent ovarian or adnexal finding.
[2020-05-26 18:17] VITALS: BP 110/87; TEMP 98.6; O2SAT 100
[2020-05-26 20:04] LABS: Urine Blood 2+ (NEG); Urine Glucose NEGATIVE (NEG); Urine Protein NEGATIVE (NEG)
== END 2020-05-26 18:03 | disposition home or self-care (01) ==
LOC: ER 15:29
DX: N93.9 Abnormal uterine and vaginal bleeding, unspecified (principal); F17.210 Nicotine dependence, cigarettes, uncomplicated
CPT/HCPCS: 36415; 76830; 80048; 81003; 81025; 85025; 99284

== ENCOUNTER 2020-05-27 18:09 | Emergency (ER) | payer OTHER ==
--- OUTSIDE RECORDS SUMMARY | 2020-05-27 18:13 | XMS REPORT | Continuity of Care Document ---
:2000 Author Organization [facility] t Address [address] [place] [address] Care Team Providers Name Role Phone EVE [...] Problem Active C [facility] itis itis 10-11 [facility] - [facility]: Memoria 00 l (LUF/LI [...] l Topical Topical as needed. (ALEXA F/LI Nikolai Nikolai (RETURN TO V/SA) [[facility] Pain] Pain] FOR DISPOSAL.) Promethazin Promethazin 2020- No Peggy [address] [facility] HCl e HCl 6- 08-22 Inlet as needed [facility] :00 l Outpati ent Clinics Lamictal Lamictal Yes Peggy [address] [facility] [address] [facility] Sprintec 28 Sprintec 28 Yes Peggy [address] [facility] Propranolol Propranolol Yes Peggy [address] [address] HCl HCl [facility] 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 Yes Peggy [address] [facility] [facility] Strattera Strattera Yes Peggy [address] [facility] Clonidine Clonidine Yes Peggy [address] [facility] HCl HCl [facility] EnLyte EnLyte Yes Peggy as [facility] Car directed [facility] ent Clinics Protonix Protonix Yes Peggy [address] [facility] Yes Peggy [address] Vitamin Vitamin [facility] DOCUSATE DOCUSATE Yes 100 3xD BY MOUTH [facility] SODIUM SODIUM TWICE A [facility] - DAY (STOOL Memoria SOFTENER) l (LUF/LI V/SA) IBUPROFEN IBUPROFEN Yes 800 BY MOUTH [facility] every 8 [facility] - hours as Memoria needed as l needed. (LUF/LI V/SA) Immunizations Ordered Filled Immunization Date Status Comments [facility] e Immunization Name Name Influenza, Influenza, 2020-01-[address] [facility] - injectable, injectable, 07:32:00 [facility] quadrivalent, quadrivalent, (LUF/CHERELLE /SA) preservative free preservative free tetanus toxoid, tetanus toxoid, 2019-10-[address] [facility] - reduced diphtheria reduced diphtheria 00:00:00 [facility] toxoid, and toxoid, and (LUF/CHERELLE/SA) acellular pertussis acellular pertussis vaccine, adsorbed vaccine, adsorbed TDAP > 7 TDAP > 7 2019-10-[address] [facility] - Years-Adacel Years-Adacel 00:00:00 [facility] Outpatient Clinics Influenza, Influenza, 2019-03-[address] [facility] - injectable, injectable, 10:50:00 [facility] quadrivalent, quadrivalent, (LUF/CHERELLE /SA) preservative free preservative free Vital Signs Vital Name Observation Time Observation Value Comments Source Body Temperature 2020-01-03 07:13:00 97.7 [degF] [facility] (LUF/CHERELLE/SA) Pulse Rate 2020-01-03 07:13:00 70 /min [facility] (LUF/CHERELLE/SA) Respiratory Rate 2020-01-03 07:13:00 18 /min [facility] (LUF/CHERELLE/SA) O2% BldC Oximetry 2020-01-03 07:13:00 100 % SHAZIA [facility] (LUF/CHERELLE/SA) BP Systolic 2020-01-03 07:13:00 122 mm[Hg] SHAZIA Marva [facility] (LUF/CHERELLE/SA) BP Diastolic 2020-01-03 07:13:00 66 mm[Hg] [facility] (LUF/CHERELLE/SA) Height 2020-01-02 04:02:00 65 [in_i] [facility] (LUF/CHERELLE/SA) Weight 2020-01-02 04:00:00 66.5 kg [facility] (LUF/CHERELLE/SA) Procedures Procedure Date / Time Performed Performing Clinician Sourc e INTRO INFLUENZA VACCNE 2020-01-02 00:00:00 [facility] S t [place] MUSCLE PERQ [facility] (LUF/CHERELLE/SA) DELIVERY PRODUCTS OF 2020-01-02 00:00:[address] [facility] [address] [facility] CONCEPTION EXT [facility] (LUF/CHERELLE/SA) MAN EXT PROD CONCEPTION 2020-01-02 00:00:[address] [facility] JOSELITO/A O [facility] (LUF/CHERELLE/SA) Encounters Start End Encounter Admission Attending Care Care Encounter Source Date/Time Date/Time Type Type Clinicians Facility Department ID 2020-01-02 2020-01-03 SMOKING E FEMI[place] [id number] [facility] [address] 04:28:00 17:00:00 TOBACCO JUJU CHIN [facility] [address], V/SA) [place] [address] 2020-01-02 2020-01-02 Outpatient STLMLC STLMLC [id number] [facility]00 [facility] Outpati ent Clinics 2019-10-21 2019-10-21 Outpatient [facility] [id number] 13:08:00 13:08:00 Clinics [facility] I Health I l Outpati ent Clinics 2019-10-21 2019-10-21 Outpatient [facility] [id number] 09:45:00 09:45:00 Clinics Clinics [facility] Health I Health I l Outpati ent Clinics 2019-10-21 2019-10-21 Outpatient [facility] [id number] [facility] 00[facility]00 00:00:00 [facility] 2019-10-13 2019-10-13 Outpatient [facility] [id number] 15[facility]20:00 15:20:00 Clinics Clinics [facility] Health I Health I l Outpati ent Clinics 2019-10-13 2019-10-13 Outpatient [facility] [id number] 14:30:00 14:30:00 Clinics Clinics [facility] Health I Health I l Outpati ent Clinics 2019-09-13 2019-09-13 Outpatient [facility] [id number] 13:30:00 13:30:00 Clinics Clinics [facility] Health I Health I l Outpati ent Clinics 2019-08-17 2019-08-17 Outpatient [facility] [id number] 15:25:00 15:25:00 Clinics Clinics [facility] Health I Health I l Outpati ent Clinics 2019-08-17 2019-08-17 Outpatient [facility] [id number] 14:56:00 14:56:00 Clinics Clinics [facility] Health I Health I l Outpati ent [facility] 2019-08-16 2019-08-16 Outpatient [facility] [id number] 09:35:00 09:35:00 Clinics Clinics [facility] Health I Health I l Outpati ent Clinics 2019-08-16 2019-08-16 Outpatient [facility] [id number] 08:30:00 08:30:00 Clinics Clinics [facility] 2019-08-16 2019-08-16 Outpatient [facility] [id number] 08:00:00 08:00:00 Clinics Clinics [facility] Clin[facility] Results Test Description Test Time Test Comments Results Result Comments Source RUBELLA IMMUNE STATUS 2020-01-04 10:03:00 Test Item Value Reference Range Interpretation Comme nts RUBELLA ANTIBODIES, IGG (test 3.06 index Immune >0.99 N code = 796931) Non-immune <0.90 Equivocal 0.90 - 0.99 Immune >0.99 PERFORMED AT: [facility] [address] [id number] AVIONICS SUPERVISOR: Walter Watson MD PHONE: [phone] [id number] 16:07:00 [address] [place], [place] [address]Ntkvj: [phone] DDHX #: [id number] Lan Support Specialist: Broderick Bell M.D.Surgical Pathology Consultation ReportPatient Name: SERVANDO BACH Case #: [id number] Med. Rec. #: [id number]: [id number] Surgery Date: 01/02/2020 : 2000 (Age:19) Received: 01/03/2020 Gender: F Copy to : Reported:01/03/2020 Physician(s): Juju Brush Specimen(s) ReceivedA: Placenta and cord Final Pathologic DiagnosisPlacenta and cord, products of conception:- MATURE PLACENTA AND CORD. Electronically Signed Out jk/01/03/2020 Broderick Bell MD, Board Certified in Anatomic [...] and shownoevidence of inflammation.Billing Fee Code(s): A; 82110QNV (HEMOGRAM ONLY) 2020-01-03 06:05:00 Test Item Value [...] NOTED ON THE RE PORT. URINALYSIS WITH [id number] 08:36:00 Test Item Value Reference Range Interpretation Comments Color (test code = UCOLR) Yellow Lt. Yellow A Clarity (test code = UCLAR) Clear Glucose (test code = UGLUC) Negative Negative N Bilirubin (test code = UBILI) Negative Negative N Ketones (test code = UKET) Negative Negative N Specific [place] (test code = 1.020 1.005-1.030 A USPGR) [...] UBACT) Trace None Seen,Trace N TYPE & [id number] 06:52:00 Test Item Value Reference Range Interpretation Comments ABO Blood Type (test code = ABO) O Rh (test code = RH) Positive Antibody Screen (test code = ABSCR) Negative Negative N ARMBAND# (test code = ARMBAND) GP 26 342 HEP B SURFACE [id number] 06:47:00 Test Item Value Reference Range Interpretation Comments FT (test code = Negative Negative N HBSAG) (qualifier value) Hep B Surface Ag 0.22 mIU/mL 0.00-1.00 No previous value was (Signal Value) reported. A thnog hammond of (test code = 0.22 was entere d by HBSAG.SV) [id number] on 02/2020 06:47 HBsAg Sig nal Cutoff Interpre tation Guide: < 1.00 Negative S pecimen is presumed to be negative for HB sAg. >=1.00 and < 5. 00 Reactive Spec imen is reactive for HB sAg. Suggest confirm ation by supplemental testing. > 5.00 Positive Specimen is pos itive for HBsAg. HIV 4th GENERATION, [id number] 06:47:00 Test Item Value Reference Range Interpretation [...] ctive. (Con firmatory tests suggested ) SYPHILIS, [id number] 06:46:00 Test Item Value Reference Range Interpretation [...] Authorization o nly. Inhouse testingCBC WITH AUTO [id number] 05:30:00 Test Item Value Reference Range Interpretation [...] 0.5 % 0.0-0.4 H IG%) DRUG SCREEN [id number] 05:10:00 Test Item Value Reference Range Interpretation [...] rugs of Abuse ran on e Siemens Jewell analyzer listed there in: Amphetamines < 1000 [...] POS code = THC) STAT LAB , [id number] 09:35:00 Test Item Value Reference Range Interpretation Comments (Urine) (test code = Negative PREGU) ONLY AVAILABLE 8A-MNHISTOLOGY [id number] 12:40:00 [address] [place], [place] [address]Hvhiq: [phone] ATOC #: [id number] Lan Support Specialist: Broderick Bell M.D.Surgical Pathology Consultation ReportPatient Name: SERVANDO WIN Case #: [id number] Med. Rec. #:[id number]: [id number] Surgery Date: 03/06/2019 : 2000 (Age:18) Received: [...] Serial sectioning reveals acysticspace in the middle. Classroom Coordinator sections submitted in cassettes [id number]. /03/07/2019 Broderick Bell MD, Board Certified in Anatomic Pathology Microscopic DescriptionMicroscopic examination of the products of conception reveals someimmaturechorionic villi as well as some degenerating tissue in abackground ofgestational endometrium, peripheral blood and fibrin. There are noabnormaltrophoblastic proliferations seen. Billing Fee Code(s): A; [id number], [id number] 07:09:00Specimen: Urine SpecimensCollected: 03/06/2019 09:05 Status: Final [...] Trimeth/Sulfa >=320 R ESBL Negative -US INTRAVAGINAL [id number] 11:38:19Procedures: US INTRAVAGINAL PELVISExam Date: 03/06/2019 9:05 AMOrdering Physician: JUJU SILVERMANClinical Indication: [id number]: Patient currently Comparison: Pelvic sonogram, 03/05/19LMP: 12/30/18Findings: [...] By: EVA MITCHELLDate: 03/06/2019 11:32 URINALYSIS WITH [id number] 09:30:00 Test Item Value Reference Range Interpretation Comments Color (test code = UCOLR) YELLOW Clarity (test code = UCLAR) CLEAR Glucose (test code = UGLUC) NEGATIVE NEGATIVE N Bilirubin (test code = UBILI) NEGATIVE NEGATIVE N Ketones (test code = UKET) NEGATIVE NEGATIVE N Specific [place] (test code = USPGR) >=1.030 1.005-1.030 A [...] 4+ None Seen,Trace A CBC WITH AUTO [id number] 05:30:00 Test Item Value Reference Range Interpretation [...] = 0.2 % 0.0-0.4 IG%) US INTRAVAGINAL [id number] 17:08:57Procedures: US INTRAVAGINAL OBExam Date: 03/05/2019 3:38 PMOrdering Physician: HIMANSHU Thorntoninical Indication: [id number]: Patient currently [id number]: Vaginal bleedingComparison: None available.LMP: 12/30/18Findings: Transabdominal and [...] PMDictated By: EVA MITCHELLDate: 03/05/2019 17:02BETA HCG [id number] 16:39:00 Test Item Value Reference Range Interpretation [...] GESTAT IONAL AGE: 1-10 weeks 63.70 - 165093.00 IU/ L 11-15 weeks 24572. 00 - 909238.00 IU/L 16-22 weeks 9383. 80 - 82271.00 IU/L 23-40 weeks 1737. 20 - 34644.00 IU/L Detection of very Low Lev els of hCG does not exclud e . Repe at testing after 48 Hrs. i s recommended. TH IS ASSAY SHOULD NOT BE U SED TO DIAGNOSE ANY CO NDITION UNRELATED TO ID EGNANCY. URINALYSIS WITH [id number] 16:31:00 Test Item Value Reference Range Interpretation Comments Color (test code = UCOLR) RED Clarity (test code = UCLAR) CLOUDY Glucose (test code = UGLUC) NEGATIVE NEGATIVE N Bilirubin (test code = UBILI) NEGATIVE NEGATIVE N Ketones (test code = UKET) TRACE NEGATIVE A Specific [place] (test code = USPGR) >=1.030 1.005-1.030 A [...] UBACT) Trace None Seen,Trace N PT AND [id number] 16:24:00 Test Item Value Reference Range Interpretation [...] 2. 5 - 3.5 STAT LAB [id number] [id number] 16:13:00 Test Item Value Reference Range Interpretation [...] (test code = CREA) 0.6 mg/dl 0.6-1.3 [id number] 16:13:00 Test Item Value Reference Range Interpretation Comments Rh (test code = RH) Positive Positive,Negative N Weak D (Du) (test code = DU) N/A STAT LAB CBC WITH AUTO [id number] 16:10:00 Test Item Value Reference Range Interpretation [...] code = IG%) 0.2 % 0.0-0.4 CULTURE, [id number] 06:21:00FIRST DRAW = 1 aerobic and 1 [...] No Growth After 5 DaysSTAT LAB , [id number] 15:41:00 Test Item Value Reference Range Interpretation Comments (Urine) (test code = Negative PREGU) ONLY AVAILABLE 8A-12MNSTAT LAB URINALYSIS WITHOUT [id number] 15:39:00 Test Item Value Reference Range Interpretation Comments Color (test code = UCOLR) Yellow Lt. Yellow A Clarity (test code = UCLAR) Clear Glucose (test code = UGLUC) Negative Negative N Bilirubin (test code = UBILI) Negative Negative N Ketones (test code = UKET) 15 Negative A Specific [place] (test code = USPGR) 1.020 1.005-1.030 A Blood (test code = UBLD) Moderate Negative A PH (test code = UPH) 5.5 4.5-8.0 A Protein (test code = UPROT) 100 Negative A Urobilinogen (test code = U UROB) 4.0 >0.2 A Nitrite (test code = UNITR) Positive Negative A Leukocyte Esterase (test code = Small Negative A ULEUK) STAT LAB CBC WITH AUTO [id number] 15:38:00 Test Item Value Reference Range Interpretation [...] IG%) 0.3 % 0.0-0.4 STAT LAB LACTIC [id number] 15:38:00 Test Item Value Reference Range Interpretation Comments LACTATE (test code = LAC) 1.83 mmol/l 0.90-1.70 H URINALYSIS WITH [id number] 13:30:00 Test Item Value Reference Range Interpretation Comments Color (test code = UCOLR) YELLOW Clarity (test code = UCLAR) SL CLOUDY Glucose (test code = UGLUC) NEGATIVE NEGATIVE N Bilirubin (test code = UBILI) NEGATIVE NEGATIVE N Ketones (test code = UKET) NEGATIVE NEGATIVE N Specific [place] (test code = 1.015 1.005-1.030 A USPGR) [...] None Seen None Seen N TEST, Urine [id number] 12:51:00 Test Item Value Reference Range Interpretation Comments (Urine) (test code = Negative PREGU) If a specimen is collected by a nurse, then you MUST fill out the Collected and Collected By beatty CULTURE, [id number] 07:34:00er 6 Specimen: Urine SpecimensCollected: 11/01/2016 09:55 [...] Trimeth/Sulfa <=20 S ESBL Negative -URINALYSIS WITH [id number] 09:46:00 Test Item Value Reference Range Interpretation Comments Color (test code = UCOLR) YELLOW Clarity (test code = UCLAR) CLOUDY Glucose (test code = UGLUC) NEGATIVE NEGATIVE N Bilirubin (test code = UBILI) NEGATIVE NEGATIVE N Ketones (test code = UKET) NEGATIVE NEGATIVE N Specific [place] (test code = USPGR) 1.025 1.005-1.030 A [...] code = UBACT) 1+ None Seen,Trace A [id number] 09:41:00 Test Item Value Reference Range Interpretation [...] 4 - SerumAlbu min)] EGFR if n/a Estonian (test code mL/min/1.73m\\ = EGFRAA) S\\2 EGFR if Non- n/a Estimate d Glomerular Estonian (test code mL/min/1.73m\\ Filtrat ion Rate (eGFR) [...] of c hronic kidney failure. TEST, Urine [id number] 09:17:00 Test Item Value Reference Range Interpretation Comments (Urine) (test code = Negative PREGU) If a specimen is collected by a nurse, then you MUST fill out the Collected and Collected By beatty CBC WITH AUTO [id number] 09:17:00 Test Item Value Reference Range Interpretation [...]
--- NOTE | 2020-05-27 19:17 | ER ---
Nurse's Notes [facility] Name: Harika Mccauley Age: 19 yrs Sex: Female : 2000 Arrival Date: 05/27/2020 Time: 18:10 Bed Waiting Private MD: Diagnosis: Presentation: 05/27 19:05 Note Called from the lobby, no answer. ca1 19:39 Chief complaint: Patient states: Was hear yesterday and said I have Fibroids. The pain ca1 started mild then when I went to the restroom today, I was in severe pain at my vagina, L side of my belly and R side of my back. Coronavirus screen: Client denies travel out of the [place] in the last 14 days. At this time, the client does not indicate any symptoms associated with coronavirus-19. Ebola Screen: Patient negative for fever greater than or equal to 101.5 degrees Fahrenheit, and additional compatible Ebola Virus Disease symptoms Patient denies exposure to infectious person. Patient denies travel to an Ebola-affected area in the 21 days before illness onset. No symptoms or risks identified at this time. Initial Sepsis Screen: Does the patient meet any 2 criteria? No. Patient's initial sepsis screen is negative. Does the patient have a suspected source of infection? No. Patient's initial sepsis screen is negative. Risk Assessment: Do you want to hurt yourself or someone else? Patient reports no desire to harm self or others. 19:39 Method Of Arrival: Ambulatory ca1 19:39 Acuity: ERICA 4 ca1 PROJ ENGINEER: 19:42 LMP N/A - Irregular menses ca1 Historical: - Allergies: 19:41 No Known Allergies; ca1 - PMHx: 19:41 None; ca1 - PSHx: 19:41 None; ca1 - Immunization history:: Flu vaccine is not up to date. - Social history:: Smoking status: Patient reports the use of cigarette tobacco products, smokes one pack cigarettes per day. Vital Signs: 19:39 BP 122 / 69; Pulse 92; Resp 16 S; Temp 97.5(TE); Pulse Ox 100% on R/A; Weight 54.43 kg ca1 (R); Height 5 ft. 2 in. (157.48 cm) (R); Pain 6/10; 19:39 Body Mass Index 21.95 (54.43 kg, 157.48 cm) ca1 ED Course: 18:10 Patient arrived in ED. am2 19:41 Triage completed. ca1 19:41 Arm band placed on right wrist. ca1 20:02 Roseanna Garza FNP-C [facility] kb 20:02 Chencho Cheney MD is Attending Physician. kb Administered Medications: No medications were administered Outcome: 19:16 Patient left the ED. ca1 20:12 Patient left the ED. em Signatures: Roseanna Garza FNP-C FNP-Joe Matthews, RN RN em Lulu Nunn am2 Zarina Daniels RN RN ca1 Corrections: (The following items were deleted from the chart) 19:39 19:16 Patient's name was called from ER lobby. No response. Unable to locate patient. ca1 Will disposition as left without being seen by a provider. ca1
[2020-05-27 21:27] VITALS: BP 122/69; TEMP 97.5; O2SAT 100
== END 2020-05-27 20:12 | disposition left against medical advice (07) ==
LOC: ER 18:09
DX: Z53.21 Procedure and treatment not carried out due to patient leaving prior to being seen by health care provider (principal)
CPT/HCPCS: 99281